=== PATIENT | male | born 1980 | race Caucasian/White ===

== ENCOUNTER 2017-10-01 10:48 | Outpatient (CLI) ==
--- NOTE | 2017-10-01 11:36 | DI ---
EXAM: Four views of the left knee. History: Left knee effusion. Findings: No acute fracture or dislocation. Superior patellar enthesiopathy. Evidence of old [place]-Schlatter disease. Mild narrowing of the medial compartment with small osteophytes. No obvious jesús int effusion. Impression: 1. No acute osseous abnormality. 2. Mild medial compartment osteoarthritis. 3. Evidence of old [place]-Schlatter disease.
== END 2017-10-01 10:49 | disposition home or self-care (01) ==
LOC: RAD 10:48
PROVIDERS: ATTEND Emergency Medicine
DX: M25.562 Pain in left knee (principal); M25.462 Effusion, left knee
CPT/HCPCS: 36415; 84550